=== PATIENT | male | born 1965 | race African-American/Black ===

== ENCOUNTER → 2016-04-03 | Outpatient (CLI) | payer OTHER ==
[~2016-04-03] VITALS: Ht 182.9 cm; Wt 101.2 kg
[~2016-04-03] MED LIST: ALLEGRA D PO; CHEL50TA PO; LIDOCAINE 2% INJ 100 MG/5 ML SDV (FOR ANES.) As Ordered ONE; NS 1,000 ML IV SCH; PROPOFOL 500 MG/50 ML VIAL As Ordered ONE; VITACAP8 PO
--- NOTE | 2016-04-03 10:10 | ROOR ---
Patient Name: Marito Sanders Procedure Date: 04/03/2016 9:40 AM Date of : 1965 Age: 50 Room: [facility] Gender: Male Note Status: Finalized Procedure: Colonoscopy to Cecum + Cold Snare Polypectomy + Hemoclip + Biopsies Indications: Screening for colorectal malignant neoplasm Providers: Porfirio Lamb MD Referring MD: Michael Gómez MD Requesting Provider: Medicines: Monitored Anesthesia Care Complications: No immediate complications. Procedure: Pre-Anesthesia Assessment: - The heart rate, respiratory rate, oxygen saturations, blood pressure, adequacy of pulmonary ventilation, and response to care were monitored throughout the procedure. The Colonoscope was introduced through the anus and advanced to the cecum, identified by appendiceal orifice and ileocecal valve. The colonoscopy was performed without difficulty. The patient tolerated the procedure well. The quality of the bowel preparation was excellent. Findings: The perianal and digital rectal examinations were normal. Non-bleeding internal hemorrhoids were found during retroflexion. The hemorrhoids were small and Grade I (internal hemorrhoids that do not prolapse). A medium polyp was found at 30 cm proximal to the anus. The polyp was pedunculated. The polyp was removed with a cold snare. Resection and retrieval were complete. To prevent bleeding after the polypectomy, one hemostatic clip was successfully placed (MR conditional). There was no bleeding at the end of the procedure. Nonbleeding ulcerated mucosa with no stigmata of recent bleeding were present at 50 cm proximal to the anus. Biopsies were taken with a cold forceps for histology. The exam was otherwise without abnormality on direct and retroflexion views. Impression: - Non-bleeding internal hemorrhoids. - One medium polyp at 30 cm proximal to the anus, removed with a cold snare. Resected and retrieved. Clip (MR conditional) was placed. - Mucosal ulceration. Biopsied. - The examination was otherwise normal on direct and retroflexion views. - The exam was otherwise normal to the cecum. Recommendation: - Patient has a contact number available for emergencies. The signs and symptoms of potential delayed complications were discussed with the patient. Return to normal activities tomorrow. Written discharge instructions were provided to the patient. - Discharge patient to home. - Continue present medications. - Await pathology results. - Telephone GI clinic for pathology results in 1 week. - Repeat colonoscopy in 5 years for surveillance based on pathology results. - Return to referring physician. - The findings and recommendations were discussed with the patient's family. Porfirio Lamb MD Porfirio Lamb MD 04/03/2016 10:09:31 AM This report has been signed electronically. Number of Addenda: 0 Note Initiated On: 04/03/2016 9:40 AM Estimated Blood Loss: Estimated blood loss: none.
[2016-04-03 10:30] VITALS: BP 124/69
== END ==
LOC: M OPP 08:43
PROVIDERS: ATTEND Internal Medicine Gastroenterology
DX: Z12.11 Encounter for screening for malignant neoplasm of colon (principal); K64.0 First degree hemorrhoids; D12.6 Benign neoplasm of colon, unspecified; K63.3 Ulcer of intestine

== ENCOUNTER → 2016-08-08 | Outpatient (CLI) | payer OTHER ==
[~2016-08-08] MED LIST changes: -LIDOCAINE 2% INJ 100 MG/5 ML SDV (FOR ANES.) As Ordered ONE; -NS 1,000 ML IV SCH; -PROPOFOL 500 MG/50 ML VIAL As Ordered ONE
--- NOTE | 2016-08-08 12:54 | REP ---
Clinical: Wheezing . Comparison: 03/08/2013 . Technique: PA and lateral. Findings: The mediastinum and cardiac silhouette are normal. The lung obando are clear and without acute consolidation, effusion, or pneumothorax. The skeletal structures are intact and normal. Impression: 1. No acute cardiopulmonary process. Signed by Vasu Schwarz MD 08/08/2016 12:46 P
== END ==
LOC: M LRY 12:28
PROVIDERS: ATTEND Nurse Practitioner Family
DX: R06.2 Wheezing (principal)

== ENCOUNTER 2016-12-11 11:52 | Emergency (ER) | payer OTHER ==
[~2016-12-11] VITALS: Ht 182.9 cm; Wt 45.4 kg
[2016-12-11] MEDS ORDERED: ONDANSETRON 4MG/2ML VIAL (J2405) IV ONE (13:00)
[2016-12-11] MEDS ORDERED: FAMOTIDINE IV BAG 20 MG in APPROPRIATE DILUENT 1 EA IV ONE (13:00)
[2016-12-11] MEDS ORDERED: NS 1,000 ML IV ONE (13:00)
[2016-12-11] MEDS ORDERED: KETOROLAC 30 MG/ML VIAL (J1885) IV ONE (13:00)
[2016-12-11 13:30] LABS: ALBUMIN 3.7 GM/DL (3.2-5.2); ALBUMIN/GLOBULIN RATIO 0.95 (1.00-1.93); ALKALINE PHOSPHATASE 72 U/L (45-117); ALT/SGPT 36 U/L (12-78); AMYLASE 119 U/L (25-115); ANION GAP 5 MEQ/L (8-16); AST/SGOT 24 U/L (15-37); BILIRUBIN,DIRECT 0.2 MG/DL (0.0-0.2); BILIRUBIN,TOTAL 0.8 MG/DL (0.2-1.0); BLOOD UREA NITROGEN 20 MG/DL (7-18); CALCIUM LEVEL 8.8 MG/DL (8.5-10.1); CARBON DIOXIDE LEVEL 30 MEQ/L (21-32); CHLORIDE LEVEL 104 MEQ/L (98-107); CREATININE FOR GFR 1.36 MG/DL (0.70-1.30); GLOMERULAR FILTRATION RATE > 60.0 (>56); GLUCOSE, FASTING 82 MG/DL (70-105); POTASSIUM SERUM 4.1 MEQ/L (3.5-5.1); SODIUM LEVEL 139 MEQ/L (136-145); TOTAL PROTEIN 7.6 GM/DL (6.4-8.2)
[2016-12-11 13:31] LABS: BASO % 0.9 % (0.0-1.0); EOS # 0.1 K/mm3 (0.0-0.50); EOS % 2.5 % (0.0-3.0); LARGE UNSTAINED CELL # 0.2 K/mm3 (0.0-0.4); LARGE UNSTAINED CELL % 3.6 % (0.0-4.0); LYMPH # 1.5 K/mm3 (1.5-4.5); LYMPH % 37.6 % (24.0-44.0); MEAN CORPUSCULAR HEMOGLOBIN 34.2 pg (27.0-33.0); MEAN CORPUSCULAR VOLUME 93.5 fl (80.0-96.0); MONO # 0.5 K/mm3 (0.0-0.8); MONO % 13.2 % (0.0-5.0); NEUTROPHILS # 1.7 K/mm3 (1.8-7.7); NEUTROPHILS % 42.2 % (36.0-66.0); PLATELET COUNT, AUTOMATED 231 k/mm3 (150-450); RED CELL DISTRIBUTION WIDTH 10.9 % (11.5-14.5); WHITE BLOOD COUNT 4.1 K/mm3 (4.0-10.0)
[2016-12-11 13:32] LABS: INR 1.02
[2016-12-11 13:38] LABS: MEAN CORPUSCULAR HGB CONC 36.6 g/dl (32.0-36.5)
--- NOTE | 2016-12-11 13:39 | REP ---
CHEST, TWO VIEWS: COMPARISON: 03/08/2013. There is no evidence of acute infiltrate. No pleural effusion is seen. The heart is normal in size. The mediastinal silhouette is unremarkable. The visualized osseous structures are intact. IMPRESSION: No acute pulmonary disease. Signed by Bienvenido Hunter MD 12/11/2016 02:26 P
--- NOTE | 2016-12-11 13:42 | REP ---
RIGHT UPPER QUADRANT ULTRASOUND: Real-time sonographic evaluation of the right upper quadrant performed. The gallbladder demonstrates no evidence of intraluminal sludge or calculi, wall thickening or pericholecystic fluid. There is no intrahepatic or extrahepatic biliary dilatation, common bile duct measuring 4 mm in diameter. Liver and pancreas demonstrate homogeneous echotexture with no gross mass. Pancreas is not seen due to overlying bowel gas. Right kidney demonstrates no hydronephrosis with normal size at 10.2 cm in length. A cyst is seen in the upper pole of the right kidney 1.1 x 0.6 x 0.9 cm. IMPRESSION: Essentially negative right upper quadrant ultrasound. Signed by Bienvenido Hunter MD 12/11/2016 02:26 P
[2016-12-11] MEDS ORDERED: MORPHINE 4 MG/ML 1ML SYRINGE IV ONE (14:00)
[2016-12-11] MEDS ORDERED: ISOVUE-370 76% 100ML VIAL (Q9967) As Ordered ONE (14:17)
[2016-12-11] MEDS ORDERED: ZOFR4TAB3 PO (14:49)
[2016-12-11] MEDS ORDERED: PERC5TAB12 PO (14:49)
--- NOTE | 2016-12-11 15:04 | REP ---
CT ABDOMEN WITH IV BUT WITHOUT ORAL CONTRAST: HISTORY: Pancreatitis. No comparison CT study. Comparison right upper quadrant sonography is from earlier this date. CT CONTRAST DOSE: 100 mL of intravenous Isovue 370. CT FINDINGS: Preliminary digital coffee weigher radiographs are unremarkable. The lung bases are clear. The liver and the spleen are normal in size homogeneous in texture. Gallbladder is unremarkable. The pancreas is morphologically intact. No peripancreatic edema, pseudocyst, abscess or necrosis seen. No hemorrhage is noted. No adrenal lesion is seen. There are tiny cortical cysts one in each kidney. No hydronephrosis seen. Small and large bowel loops are unremarkable. No bony lesion is seen. IMPRESSION: Unremarkable CT study of the abdomen with IV and oral contrast. Normal pancreas. No complication identified. Signed by Abhay Pruitt MD 12/11/2016 03:22 P
[2016-12-11 15:17] VITALS: BP 123/59
--- NOTE | 2016-12-13 05:40 | ECGEPIP ---
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
== END 2016-12-11 15:20 | disposition home or self-care (01) ==
LOC: EDBD 11:52 → M ED 11:52
DX: K85.90 Acute pancreatitis without necrosis or infection, unspecified (principal)
CPT/HCPCS: 71020; 74160; 76705; 80048; 80076; 82150; 82550; 82553; 83690; 85025; 85610; 93005; 93041; 96374; 96375; 99284; G0480; J1885; Q9967

== ENCOUNTER → 2016-12-19 | Outpatient (CLI) | payer OTHER ==
[~2016-12-19] MED LIST changes: +PERC5TAB12 PO; +TRAM50TA2; +ZOFR4TAB3 PO
[2016-12-19 19:40] LABS: ALBUMIN 4.1 GM/DL (3.2-5.2); ALKALINE PHOSPHATASE 87 U/L (45-117); ALT/SGPT 37 U/L (12-78); AMYLASE 50 U/L (25-115); ANION GAP 3 MEQ/L (8-16); AST/SGOT 23 U/L (15-37); BLOOD UREA NITROGEN 17 MG/DL (7-18); CALCIUM LEVEL 9.2 MG/DL (8.5-10.1); CARBON DIOXIDE LEVEL 32 MEQ/L (21-32); CHLORIDE LEVEL 103 MEQ/L (98-107); CHOLESTEROL LEVEL 152 MG/DL (<200); CREATININE FOR GFR 1.39 MG/DL (0.70-1.30); GLOMERULAR FILTRATION RATE > 60.0 (>56); GLUCOSE, FASTING 82 MG/DL (70-105); POTASSIUM SERUM 4.6 MEQ/L (3.5-5.1); SODIUM LEVEL 138 MEQ/L (136-145); TOTAL PROTEIN 8.2 GM/DL (6.4-8.2); TRIGLYCERIDES LEVEL 115 MG/DL (<150)
== END ==
LOC: M WUC 08:56
PROVIDERS: ATTEND Family Medicine
DX: K85.90 Acute pancreatitis without necrosis or infection, unspecified (principal)

== ENCOUNTER 2016-12-20 11:28 | Emergency (ER) | payer OTHER ==
[~2016-12-20] VITALS: Ht 182.9 cm; Wt 100.9 kg
[~2016-12-20 11:28] MED LIST changes: -TRAM50TA2
[2016-12-20] MEDS ORDERED: NS 1,000 ML IV SCH (11:47)
[2016-12-20] MEDS ORDERED: NS 1,000 ML IV ONE (12:00)
[2016-12-20] MEDS ORDERED: MORPHINE 4 MG/ML 1ML SYRINGE IV PRN (12:00)
[2016-12-20] MEDS ORDERED: ONDANSETRON 4MG/2ML VIAL (J2405) IV ONE (12:00)
[2016-12-20 12:02] LABS: BASO # 0.1 10^3/uL (0.0-0.2); BASO % 0.6 % (0.0-1.0); EOS # 0.1 10^3/uL (0.0-0.50); IMMATURE GRANULOCYTE % 0.3 % (0-0); LYMPH # 1.4 10^3/uL (1.5-4.5); LYMPH % 18.1 % (24.0-44.0); MEAN CORPUSCULAR HEMOGLOBIN 32.9 pg (27.0-33.0); MEAN CORPUSCULAR HGB CONC 35.3 g/dl (32.0-36.5); MEAN CORPUSCULAR VOLUME 93.1 fl (80.0-96.0); MONO # 0.9 10^3/uL (0.0-0.8); MONO % 11.5 % (0.0-5.0); NEUTROPHILS # 5.4 10^3/uL (1.8-7.7); NEUTROPHILS % 68.5 % (36.0-66.0); PLATELET COUNT, AUTOMATED 259 10^3/uL (150-450); RED CELL DISTRIBUTION WIDTH 10.6 % (11.5-14.5); WHITE BLOOD COUNT 7.9 10^3/uL (4.0-10.0)
[2016-12-20] MEDS ORDERED: TRAM50TA2 (12:17)
[2016-12-20 12:29] LABS: ALBUMIN/GLOBULIN RATIO 0.95 (1.00-1.93); ALKALINE PHOSPHATASE 84 U/L (45-117); ALT/SGPT 38 U/L (12-78); AMYLASE 51 U/L (25-115); ANION GAP 5 MEQ/L (8-16); AST/SGOT 28 U/L (15-37); BILIRUBIN,DIRECT 0.2 MG/DL (0.0-0.2); BILIRUBIN,TOTAL 0.6 MG/DL (0.2-1.0); BLOOD UREA NITROGEN 17 MG/DL (7-18); CALCIUM LEVEL 8.8 MG/DL (8.5-10.1); CARBON DIOXIDE LEVEL 30 MEQ/L (21-32); CHLORIDE LEVEL 101 MEQ/L (98-107); CREATININE FOR GFR 1.44 MG/DL (0.70-1.30); GLOMERULAR FILTRATION RATE > 60.0 (>56); GLUCOSE, FASTING 83 MG/DL (70-105); POTASSIUM SERUM 4.5 MEQ/L (3.5-5.1); SODIUM LEVEL 136 MEQ/L (136-145); TOTAL PROTEIN 8.2 GM/DL (6.4-8.2)
[2016-12-20 13:44] LABS: MAGNESIUM LEVEL 2.3 MG/DL (1.8-2.4)
--- NOTE | 2016-12-20 14:40 | REP ---
CT ABDOMEN AND PELVIS WITHOUT CONTRAST: HISTORY: Right flank pain. COMPARISON: 12/11/2016. The liver, gallbladder, pancreas, spleen, adrenal glands and kidneys are normal in appearance. There is no nephrolithiasis or hydronephrosis. There is no mass, adenopathy or free fluid. The visualized lungs are clear. The prostate gland and urinary bladder are normal in appearance. Minimal degenerative change is present in the spine. IMPRESSION: Normal CT abdomen and pelvis. Signed by Darryl Barrow MD 12/20/2016 02:41 P
--- NOTE | 2016-12-20 15:12 | ECGEPIP ---
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
[2016-12-20 17:45] VITALS: BP 136/81
--- NOTE | 2016-12-22 09:11 | ECGEPIP ---
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
== END 2016-12-20 18:02 | disposition home or self-care (01) ==
LOC: EDBD 11:28 → M ED 11:28
DX: R55 Syncope and collapse (principal); Z87.19 Personal history of other diseases of the digestive system; Z83.3 Family history of diabetes mellitus; J30.2 Other seasonal allergic rhinitis
CPT/HCPCS: 74176; 80048; 80076; 82150; 82550; 82553; 83690; 83735; 85025; 85610; 93005; 93041; 96361; 96374; 96375; 99285; J2405

== ENCOUNTER 2017-11-23 20:38 | Emergency (ER) | payer OTHER ==
[2017-11-23] MEDS: BACLOFEN 10 MG TAB PO (22:24)
[2017-11-23] MEDS: PERCOCET 5MG/325MG TAB PO (22:25)
[2017-11-24] MEDS: OXYCODONE/APAP 5MG/325MG(BULK FOR ED) 1 TABLET PO (00:30)
== END 2017-11-24 00:32 | disposition home or self-care (01) ==
LOC: M ED 11-24 00:32
DX: M54.41 Lumbago with sciatica, right side (principal)
CPT/HCPCS: 93971

== ENCOUNTER → 2018-04-01 | Outpatient (CLI) | payer OTHER ==
[~2018-04-01] MED LIST changes: +BACL10TA2 PO; +GABA-843 PO; +MELO15TA28 PO; +TRAM50TA2; +ZOFR4TAB14 PO; -ZOFR4TAB3 PO
--- NOTE | 2018-04-01 19:50 | REP ---
Skeletal survey: 19 views. History: Unspecified abnormal finding and specimens from other organs. Findings: PA and lateral views of the skull demonstrate dural calcification in the midline. No bony destructive lesion is seen. AP and lateral views of the cervical spine show degenerative disc and osteoarthritic facet changes. Vertebral body heights are preserved. Alignment is normal. Swimmers lateral view shows no additional abnormality. AP and lateral views of the thoracic and lumbar spine show preserved vertebral body heights. Degenerative disc changes are noted in the mid thoracic and lower lumbar spine. There is a spina bifida occulta noted incidentally T12. No bony destructive lesion is seen. AP view of the pelvis shows no focal bony destructive lesion. There are benign cysts in the femoral neck on each side. AP views of the femurs and humeri show no suspicious lytic lesion. AP view of the chest and ribs show no bony destructive rib lesion. Impression: Negative skeletal survey. Degenerative spondylosis changes in the spine. Electronically Signed by Abhay Pruitt MD 04/02/2018 08:11 A
== END ==
LOC: M RAD 14:39
PROVIDERS: ATTEND Internal Medicine Hematology & Oncology
DX: R93.7 Abnormal findings on diagnostic imaging of other parts of musculoskeletal system (principal)

== ENCOUNTER → 2018-04-12 | Outpatient (REF) | payer OTHER ==
[2018-04-14 08:17] LABS: FREE KAPPA LIGHT CHAINS URINE 62.3 mg/L (1.35-24.19); FREE LAMBDA LIGHT CHAINS URINE 2.66 mg/L (0.24-6.66); KAPPA/LAMBDA RATIO URINE 23.42 (2.04-10.37)
== END ==
LOC: M LAB REF 11:19
PROVIDERS: ATTEND Internal Medicine Hematology & Oncology
DX: R89.9 Unspecified abnormal finding in specimens from other organs, systems and tissues (principal); M54.10 Radiculopathy, site unspecified; G62.9 Polyneuropathy, unspecified; C54.9 Malignant neoplasm of corpus uteri, unspecified

== ENCOUNTER → 2018-04-18 | Outpatient (CLI) | payer OTHER ==
--- NOTE | 2018-04-18 10:44 | REP ---
MRI thoracic spine without contrast: History: Upper T-spine pain. Left-sided mid back pain. Technique: Sagittal and axial T1 and T2-weighted scans are acquired in the usual fashion with and without fat saturation. Sequences include spin echo, turbo spin-echo, and STIR imaging sequences. MRI findings: Thoracic vertebral body heights are preserved. Alignment is normal. There is a 9 mm hemangioma on the left side of the T5 vertebral body and a smaller hemangioma on the left side of the T9 vertebral body. Cortical and medullary bone signal intensity are otherwise normal. There is a 1.1 cm cyst in the right kidney. Axial and sagittal images at the T8-T9 level demonstrate a small left paracentral focal disc protrusion which indents the ventral margin of the thoracic cord. No overall cord compression seen. At T7-T8, there is a small left posterior disc protrusion as well. There is ligamentum flavum and facet hypertrophy at this level and canal size is developmentally somewhat small. No other thoracic disc herniation is seen. At T9-T10, there is mild facet hypertrophy left a little greater than right but no cord compression. The thoracic cord is normal in coarse, caliber and signal intensity. Impression: Mild degenerative disc changes with left central small focal disc protrusions at T8-9 and T7-8. Facet and ligamentum flavum hypertrophy at T7-8 contribute to mild overall canal size narrowing at that level. Electronically Signed by Abhay Pruitt MD 04/18/2018 10:47 A
== END ==
LOC: M RAD 09:01
PROVIDERS: ATTEND Internal Medicine Hematology & Oncology
DX: G62.9 Polyneuropathy, unspecified (principal); R89.9 Unspecified abnormal finding in specimens from other organs, systems and tissues; M51.24 Other intervertebral disc displacement, thoracic region; M51.34 Other intervertebral disc degeneration, thoracic region

== ENCOUNTER → 2018-05-29 | Outpatient (REF) | payer OTHER | LOC: M SFHCLERA 13:29 | PROVIDERS: ATTEND Nurse Practitioner Family | DX: R50.9 Fever, unspecified (principal) ==

== ENCOUNTER → 2019-07-12 | Outpatient (REF) | payer OTHER ==
[2019-07-12 16:43] LABS: HEMATOCRIT 43.9 % (42.0-52.0); HEMOGLOBIN 15.7 g/dl (13.5-17.5); MEAN CORPUSCULAR HGB CONC 35.8 g/dl (32.0-36.5); PLATELET COUNT, AUTOMATED 280 10^3/uL (150-450); RED BLOOD COUNT 4.62 10^6/uL (4.30-6.10); WHITE BLOOD COUNT 5.4 10^3/uL (4.0-10.0)
[2019-07-12 17:15] LABS: ALBUMIN 3.9 GM/DL (3.2-5.2); ALT/SGPT 49 U/L (12-78); BILIRUBIN,TOTAL 1.2 MG/DL (0.2-1.0); BLOOD UREA NITROGEN 13 MG/DL (7-18); CALCIUM LEVEL 9.6 MG/DL (8.5-10.1); CARBON DIOXIDE LEVEL 30 MEQ/L (21-32); CHLORIDE LEVEL 103 MEQ/L (98-107); CHOLESTEROL LEVEL 216 MG/DL (<200); CREATININE FOR GFR 1.25 MG/DL (0.70-1.30); GLOMERULAR FILTRATION RATE > 60.0 (>56); GLUCOSE, FASTING 81 MG/DL (70-100); HDL CHOLESTEROL 30 MG/DL (>40); LDL CHOLESTEROL 119 MG/DL (<100); NON-HDL-C 186 MG/DL; POTASSIUM SERUM 4.6 MEQ/L (3.5-5.1); SODIUM LEVEL 138 MEQ/L (136-145); TOTAL PROTEIN 8.2 GM/DL (6.4-8.2); TRIGLYCERIDES LEVEL 334 MG/DL (<150)
== END ==
LOC: M SFHCADAM 13:54
PROVIDERS: ATTEND Family Medicine
DX: E78.5 Hyperlipidemia, unspecified (principal); D89.89 Other specified disorders involving the immune mechanism, not elsewhere classified; Z12.5 Encounter for screening for malignant neoplasm of prostate

== ENCOUNTER → 2020-05-01 | Outpatient (CLI) | payer OTHER ==
[~2020-05-01] MED LIST changes: +GABA-282 PO; -GABA-843 PO
--- NOTE | 2020-05-01 17:16 | REP ---
INDICATION: THORACIC SPINE PAIN COMPARISON: None. TECHNIQUE: AP, lateral, and swimmers views. FINDINGS: Alignment and kyphosis is maintained. Vertebral bodies intact. No acute fracture / compression injury or subluxation. Age-related changes are appreciated including subtle increased sclerosis along the endplates with minimal marginal spurring. Paravertebral soft tissues are normal. IMPRESSION: Normal age-appropriate thoracic spine series. <Electronically signed by Vasu Schwarz > 05/01/20 2268
== END ==
LOC: M ADAMS 14:37
PROVIDERS: ATTEND Family Medicine
DX: M54.6 Pain in thoracic spine (principal)

== ENCOUNTER → 2021-05-08 | Outpatient (CLI) | payer OTHER | LOC: M PLAIMG 11:18 | PROVIDERS: ATTEND Family Medicine | DX: J32.9 Chronic sinusitis, unspecified (principal) ==

== ENCOUNTER → 2021-12-28 | Outpatient (CLI) | payer OTHER ==
[~2021-12-28] MED LIST changes: +CLAR5TAB7 PO
== END ==
LOC: M LABSMTC 11:13
PROVIDERS: ATTEND Anesthesiology
DX: Z01.818 Encounter for other preprocedural examination (principal); Z11.52 Encounter for screening for COVID-19

== ENCOUNTER 2022-01-01 09:39 | Day surgery (SDC) | payer OTHER ==
[~2022-01-01] VITALS: Ht 182.9 cm; Wt 103.4 kg
[~2022-01-01 09:39] MED LIST changes: +NS 1,000 ML IV ONE
[2022-01-01] MEDS ORDERED: propofoL 200 MG/20 ML VIAL As Ordered ONE (11:15)
[2022-01-01] MEDS ORDERED: LIDOCAINE 2% 100MG/5ML SDV (FOR ANES.) As Ordered ONE (11:15)
[2022-01-01 11:50] VITALS: BP 147/83
== END 2022-01-01 12:01 | disposition home or self-care (01) ==
LOC: M OPP 09:39
PROVIDERS: ATTEND Surgery
DX: Z12.11 Encounter for screening for malignant neoplasm of colon (principal); Z86.010 Personal history of colon polyps; K63.3 Ulcer of intestine; K57.30 Diverticulosis of large intestine without perforation or abscess without bleeding; Z79.1 Long term (current) use of non-steroidal anti-inflammatories (NSAID); Z79.899 Other long term (current) drug therapy; L40.9 Psoriasis, unspecified; K22.4 Dyskinesia of esophagus

== ENCOUNTER → 2022-11-20 | Outpatient (CLI) | payer OTHER ==
[~2022-11-20] MED LIST changes: -NS 1,000 ML IV ONE
[2022-11-20 09:23] LABS: HEMATOCRIT 43.6 % (42.0-52.0); HEMOGLOBIN 15.1 g/dl (13.5-17.5); MEAN CORPUSCULAR HEMOGLOBIN 33.3 pg (27.0-33.0); MEAN CORPUSCULAR HGB CONC 34.6 g/dl (32.0-36.5); MEAN CORPUSCULAR VOLUME 96.2 fl (80.0-96.0); PLATELET COUNT, AUTOMATED 234 10^3/uL (150-450); RED BLOOD COUNT 4.53 10^6/uL (4.30-6.10); WHITE BLOOD COUNT 4.3 10^3/uL (4.0-10.0)
[2022-11-20 09:30] LABS: INR 1.07; PROTHROMBIN TIME 13.6 SECONDS (12.5-14.5)
[2022-11-20 09:44] LABS: ALBUMIN 3.9 G/DL (3.2-5.2); ALKALINE PHOSPHATASE 85 U/L (46-116); ALT/SGPT 27 U/L (7.0-40); AST/SGOT 20 U/L (<34); BILIRUBIN,TOTAL 0.8 MG/DL (0.3-1.2); BLOOD UREA NITROGEN 22 MG/DL (9-23); CALCIUM LEVEL 9.3 MG/DL (8.5-10.1); CARBON DIOXIDE LEVEL 28 MMOL/L (20-31); CHLORIDE LEVEL 106 MMOL/L (98-107); CREATININE FOR GFR 1.31 MG/DL (0.70-1.30); GLOMERULAR FILTRATION RATE > 60.0 (>56); GLUCOSE, FASTING 81 MG/DL (60-100); SODIUM LEVEL 141 MMOL/L (136-145); TOTAL PROTEIN 7.2 G/DL (5.7-8.2)
[2022-11-20 11:39] LABS: ERYTHROCYTE SEDIMENTATION RATE 9 mm/hr (0-20)
== END ==
LOC: M RAD 08:12
PROVIDERS: ATTEND Orthopaedic Surgery
DX: Z01.818 Encounter for other preprocedural examination (principal); M17.11 Unilateral primary osteoarthritis, right knee

== ENCOUNTER → 2022-11-21 | Outpatient (CLI) | payer OTHER | LOC: M EKG 09:18 | PROVIDERS: ATTEND Orthopaedic Surgery | DX: Z01.818 Encounter for other preprocedural examination (principal) ==

== ENCOUNTER → 2023-07-15 | Outpatient (REF) | payer OTHER ==
[2023-07-15 13:22] LABS: BASO # 0.1 10^3/uL (0.0-0.2); EOS # 0.1 10^3/uL (0.0-0.5); EOS % 2.3 % (0.0-3.0); HEMATOCRIT 42.9 % (42.0-52.0); HEMOGLOBIN 14.8 g/dl (13.5-17.5); LYMPH # 1.5 10^3/uL (1.5-5.0); LYMPH % 30.5 % (24.0-44.0); MEAN CORPUSCULAR HGB CONC 34.5 g/dl (32.0-36.5); MEAN CORPUSCULAR VOLUME 95.8 fl (80.0-96.0); MONO # 0.9 10^3/uL (0.0-0.8); MONO % 19.2 % (2.0-8.0); NEUTROPHILS # 2.2 10^3/uL (1.5-8.5); NEUTROPHILS % 46.6 % (36.0-66.0); PLATELET COUNT, AUTOMATED 261 10^3/uL (150-450); RED BLOOD COUNT 4.48 10^6/uL (4.30-6.10); WHITE BLOOD COUNT 4.8 10^3/uL (4.0-10.0)
[2023-07-15 14:19] LABS: C REACTIVE PROTEIN QUANTITATIV < 0.40 MG/DL (<1.0)
[2023-07-15 14:20] LABS: HEMOGLOBIN A1c 4.4 % (4.0-6.0)
[2023-07-15 14:21] LABS: ALKALINE PHOSPHATASE 84 U/L (46-116); ALT/SGPT 38 U/L (7.0-40); AST/SGOT 25 U/L (<34); BILIRUBIN,TOTAL 0.9 MG/DL (0.3-1.2); BLOOD UREA NITROGEN 14 MG/DL (9-23); CALCIUM LEVEL 9.5 MG/DL (8.3-10.6); CARBON DIOXIDE LEVEL 28 MMOL/L (20-31); CHLORIDE LEVEL 103 MMOL/L (98-107); CHOLESTEROL LEVEL 161 MG/DL (<200); CHOLESTEROL RISK RATIO 5.19 (<5); CREATININE FOR GFR 1.32 MG/DL (0.70-1.30); GLOMERULAR FILTRATION RATE > 60.0 (>49); GLUCOSE, FASTING 79 MG/DL (74-106); POTASSIUM SERUM 4.4 MMOL/L (3.5-5.1); PSA SCREENING 0.62 NG/ML (< 4.00); SODIUM LEVEL 139 MMOL/L (136-145); TOTAL PROTEIN 7.2 G/DL (5.7-8.2); TRIGLYCERIDES LEVEL 180 MG/DL (<150)
== END ==
LOC: M SFHCADAM 09:48
PROVIDERS: ATTEND Family Medicine
DX: Z12.5 Encounter for screening for malignant neoplasm of prostate (principal); E78.5 Hyperlipidemia, unspecified; J30.9 Allergic rhinitis, unspecified; D89.0 Polyclonal hypergammaglobulinemia; I10 Essential (primary) hypertension; Z13.1 Encounter for screening for diabetes mellitus

== ENCOUNTER → 2023-07-15 | Outpatient (CLI) | payer OTHER | LOC: M ADAMS 09:57 | PROVIDERS: ATTEND Family Medicine | DX: M54.12 Radiculopathy, cervical region (principal) ==

== ENCOUNTER → 2024-04-21 | Outpatient (REF) | payer OTHER ==
[~2024-04-21] MED LIST changes: +GABA-1172 PO; -GABA-282 PO
== END ==
LOC: M SFHCPLAZ 16:49
PROVIDERS: ATTEND Physician Assistant
DX: J06.9 Acute upper respiratory infection, unspecified (principal)

== ENCOUNTER → 2024-05-05 | Outpatient (REF) | payer OTHER ==
[2024-05-05 19:31] LABS: HEMATOCRIT 43.5 % (42.0-52.0); HEMOGLOBIN 14.6 g/dl (13.5-17.5); MEAN CORPUSCULAR HEMOGLOBIN 32.7 pg (27.0-33.0); MEAN CORPUSCULAR HGB CONC 33.6 g/dl (32.0-36.5); MEAN CORPUSCULAR VOLUME 97.3 fl (80.0-96.0); PLATELET COUNT, AUTOMATED 287 10^3/uL (150-450); RED BLOOD COUNT 4.47 10^6/uL (4.30-6.10)
[2024-05-05 19:58] LABS: PSA SCREENING 0.89 NG/ML (< 4.00)
[2024-05-05 20:00] LABS: ALBUMIN 4.3 G/DL (3.2-5.2); ALKALINE PHOSPHATASE 81 U/L (40-129); ALT/SGPT 59 U/L (7.0-40); AST/SGOT 33 U/L (<34); BILIRUBIN,TOTAL 0.8 MG/DL (0.3-1.2); BLOOD UREA NITROGEN 18 MG/DL (9-23); CALCIUM LEVEL 9.8 MG/DL (8.3-10.6); CARBON DIOXIDE LEVEL 28 MMOL/L (20-31); CHLORIDE LEVEL 107 MMOL/L (98-107); CHOLESTEROL LEVEL 193 MG/DL (<200); CHOLESTEROL RISK RATIO 5.37 (<5); CREATININE FOR GFR 1.42 MG/DL (0.70-1.30); GLOMERULAR FILTRATION RATE > 60.0 (>49); GLUCOSE, FASTING 77 MG/DL (74-106); HDL CHOLESTEROL 35.9 MG/DL (>40); LDL CHOLESTEROL 115.3 MG/DL (<100); NON-HDL-C 157.1 MG/DL; POTASSIUM SERUM 4.8 MMOL/L (3.5-5.1); SODIUM LEVEL 141 MMOL/L (136-145); TOTAL PROTEIN 7.9 G/DL (5.7-8.2); TRIGLYCERIDES LEVEL 209 MG/DL (<150)
[2024-05-05 20:03] LABS: HEMOGLOBIN A1c 4.3 % (4.0-6.0)
== END ==
LOC: M SFHCADAM 14:15
PROVIDERS: ATTEND Family Medicine
DX: E78.5 Hyperlipidemia, unspecified (principal); Z13.1 Encounter for screening for diabetes mellitus; Z12.5 Encounter for screening for malignant neoplasm of prostate; J30.1 Allergic rhinitis due to pollen
CPT/HCPCS: 80053; 80061; 83036; 85027; G0103

== ENCOUNTER → 2024-07-13 | Outpatient (CLI) | payer OTHER | LOC: M PLAIMG 09:37 | PROVIDERS: ATTEND Physician Assistant Medical | DX: M54.59 Other low back pain (principal) ==